=== PATIENT | female | born 1965 | race Caucasian/White ===

== ENCOUNTER → 2020-09-29 | Outpatient (CLI) | payer OTHER ==
[~2020-09-29] MED LIST: CARAFATE 1 GM TA1 GM PO; CETIRIZINE HCL10 MG PO; ECOTRIN81 MG PO; ELIQUIS 2.5 MG2.5 MG PO; K-DUR TAB 10 M10 MEQ PO; LASIX40 MG PO; LIPITOR TAB 2020 MG PO; LOPRESSOR 25 MG25 MG PO; METFORMIN HCL500 MG PO; PERCOCET 10-321 EACH PO; PRINIVIL20 MG PO; SEROQUEL50 MG PO; SYNTHROID25 MCG PO; VITAMIN B12-FO1 EACH PO; VITAMIN D350000 UNIT PO; ZOLOFT50 MG PO
== END ==
LOC: KOH-I 15:13
DX: S82.892A Other fracture of left lower leg, initial encounter for closed fracture (principal); S82.891A Other fracture of right lower leg, initial encounter for closed fracture
CPT/HCPCS: 73610; 73630

== ENCOUNTER → 2020-11-16 | Outpatient (CLI) | payer OTHER | LOC: KOH-I 13:08 | DX: S82.891A Other fracture of right lower leg, initial encounter for closed fracture (principal) | CPT/HCPCS: 73610 ==

== ENCOUNTER → 2021-01-14 | Outpatient (CLI) | payer OTHER | LOC: KOH-I 15:57 | DX: S82.401A Unspecified fracture of shaft of right fibula, initial encounter for closed fracture (principal); S92.901A Unspecified fracture of right foot, initial encounter for closed fracture; M19.071 Primary osteoarthritis, right ankle and foot | CPT/HCPCS: 73610; 73630 ==